=== PATIENT | female | born 1940 | race Caucasian/White ===

== ENCOUNTER 2020-09-24 15:21 | Inpatient (IN) ==
[2020-09-24] MEDS ORDERED: Ondansetron 4 MG/2 ML VIAL IVP ONE (17:08)
[2020-09-24 17:50] LABS: Basophils % 0.6 %; Eosinophils # 0.1 K/mcL (0.0-0.6); Hematocrit 38.6 % (35.3-44.9); Hemoglobin 13.1 g/dL (11.5-15.4); Immature Granulocytes % 0.4 % (0-4); Lymphocytes # 0.9 K/mcL (0.6-4.6); Mean Corpuscular HGB Conc 33.9 g/dL (31.6-35.5); Mean Corpuscular Hemoglobin 27.9 pg (28.0-33.3); Mean Corpuscular Volume 82.3 fL (83.0-100.0); Mean Platelet Volume 9.7 fL (9.4-12.4); Monocytes # 0.8 K/mcL (0.0-1.3); Monocytes % 10.7 %; Neutrophils # 5.4 K/mcL (1.6-8.9); Platelet Count 259 K/mcL (140-400); Red Blood Count 4.69 M/mcL (3.82-4.97); Segmented Neutrophils % 74.3 %; White Blood Count 7.2 K/mcL (4.3-11.1)
[2020-09-24 18:07] LABS: Alanine Aminotransferase 17 Units/L (7-52); Albumin 3.8 g/dL (3.5-5.7); Albumin/Globulin Ratio 1.3 (1.1-2.2); Alkaline Phosphatase 76 Units/L (34-104); Aspartate Amino Transferase 21 Units/L (13-39); BUN/Creatinine Ratio 21 (6-26); Bilirubin,Direct 0.1 mg/dL (0.0-0.2); Bilirubin,Indirect 0.4 mg/dL (0.0-1.0); Bilirubin,Total 0.5 mg/dL (0.3-1.0); Blood Urea Nitrogen 14 mg/dL (8-23); Calcium 8.8 mg/dL (8.6-10.3); Carbon Dioxide 31 mEq/L (23-29); Chloride 84 mEq/L (98-107); Glucose 111 mg/dL (70-105); Lipase 82 Units/L (11-82); Osmolality,Calculated 253 (280-300); Potassium 3.4 mEq/L (3.5-5.1); Sodium 121 mEq/L (136-145); Total Protein 6.8 g/dL (6.4-8.9); Troponin I < 0.03 ng/mL (< 0.04); eGFR For African Americans > 60 (> 60); eGFR For Non-African Americans > 60 (> 60)
[2020-09-24] MEDS ORDERED: 0.9 % Sodium Chloride 1,000 ML IVC ONE (18:13)
[2020-09-24] MEDS ORDERED: Ketorolac 15 MG/ML VIAL IVP ONE (18:16)
[2020-09-24 18:39] LABS: Bacteria,Urine Few per hpf (None-Few); Bilirubin,Urine Negative (Negative); Blood,Urine Negative (Negative); Clarity,Urine Clear (Clear); Color,Urine Light-Yellow (Yellow); Glucose,Urine (UA) Normal (Normal); Ketones,Urine Negative (Negative); Leukocyte Esterase,Urine Large (Negative); Mucus,Urine Few per lpf (None-Few); Nitrite,Urine Negative (Negative); Protein,Urine Negative (Neg-Trace); RBC,Urine 0-3 per hpf (0-3); Squamous Epithelial Cell,Urine Few per hpf (None-Few); Urobilinogen,Urine Normal (Normal)
[2020-09-24] MEDS ORDERED: Pantoprazole 40 MG VIAL IVP ONE (19:34)
[2020-09-24] MEDS ORDERED: Ondansetron 4 MG/2 ML VIAL IVP PRN (21:20)
[2020-09-24] MEDS ORDERED: Naloxone 0.4 MG/ML INJ IVP PRN (21:20)
[2020-09-25] MEDS: Albuterol 2.5 MG/3 ML NEBULIZER IH SCH ×7 (00:16→23:36)
[2020-09-25] MEDS: Melatonin 3 MG TABLET PO PRN ×2 (00:19→22:51)
[2020-09-25] MEDS: amLODIPine 5 MG TABLET PO SCH ×3 (00:19→20:21)
[2020-09-25] MEDS: *HR* LORazepam 1 MG TABLET PO SCH ×5 (00:19→22:51)
[2020-09-25] MEDS: atenoloL 50 MG TABLET PO SCH ×3 (00:19→20:21)
[2020-09-25] MEDS: AMILoride/HCTZ 5-50mg 1 EACH TABLET PO SCH ×2 (00:19→09:19)
[2020-09-25] MEDS ORDERED: Acetaminophen 325 MG TABLET PO PRN (01:29)
[2020-09-25 05:17] LABS: Basophils % 0.2 %; Eosinophils # 0.1 K/mcL (0.0-0.6); Eosinophils % 0.7 %; Hematocrit 36.6 % (35.3-44.9); Hemoglobin 12.5 g/dL (11.5-15.4); Immature Granulocytes % 0.3 % (0-4); Lymphocytes % 10.7 %; Mean Corpuscular HGB Conc 34.2 g/dL (31.6-35.5); Mean Corpuscular Hemoglobin 28.2 pg (28.0-33.3); Mean Corpuscular Volume 82.4 fL (83.0-100.0); Mean Platelet Volume 9.8 fL (9.4-12.4); Monocytes # 0.8 K/mcL (0.0-1.3); Monocytes % 8.5 %; Neutrophils # 7.3 K/mcL (1.6-8.9); Platelet Count 223 K/mcL (140-400); Red Blood Count 4.44 M/mcL (3.82-4.97); Red Cell Distribution Width 12.9 % (11.5-14.5); Segmented Neutrophils % 79.6 %; White Blood Count 9.1 K/mcL (4.3-11.1)
[2020-09-25 05:37] LABS: Alanine Aminotransferase 15 Units/L (7-52); Albumin 3.5 g/dL (3.5-5.7); Albumin/Globulin Ratio 1.3 (1.1-2.2); Alkaline Phosphatase 71 Units/L (34-104); Aspartate Amino Transferase 18 Units/L (13-39); BUN/Creatinine Ratio 18 (6-26); Bilirubin,Total 0.4 mg/dL (0.3-1.0); Blood Urea Nitrogen 11 mg/dL (8-23); Calcium 8.7 mg/dL (8.6-10.3); Carbon Dioxide 28 mEq/L (23-29); Chloride 90 mEq/L (98-107); Globulin 2.7 g/dL (2.4-3.5); Glucose 85 mg/dL (70-105); Osmolality,Calculated 259 (280-300); Potassium 3.5 mEq/L (3.5-5.1); Sodium 125 mEq/L (136-145); Total Protein 6.2 g/dL (6.4-8.9); eGFR For African Americans > 60 (> 60); eGFR For Non-African Americans > 60 (> 60)
[2020-09-25] MEDS: *HR* Heparin 5,000 UNIT/ML VIAL SQ SCH ×2 (06:15→18:14)
[2020-09-25] MEDS: Budesonide/Formoterol 160/4.5 1 PUFF INH IH SCH ×2 (07:42→19:38)
[2020-09-25] MEDS: Tiotropium 10 INH DOSE IH SCH (07:45)
[2020-09-25 07:59] LABS: Sodium, Urine 88.8 mEq/L
[2020-09-25] MEDS ORDERED: lisinopriL 5 MG TABLET PO SCH (09:00)
[2020-09-25] MEDS: Aspirin Enteric Coated 81 MG Tablet PO SCH (09:17)
[2020-09-25] MEDS: PARoxetine 20 MG TABLET PO SCH (09:17)
[2020-09-25] MEDS ORDERED: GI Cocktail 40 ML EACH PO ONE (11:29)
[2020-09-25] MEDS: *HR* HYDROcodone/Acet 5/325 mg TABLET PO PRN ×2 (11:54→18:16)
[2020-09-25] MEDS ORDERED: Mirtazapine 15 MG TABLET PO SCH (21:00)
[2020-09-26] MEDS: *HR* HYDROcodone/Acet 5/325 mg TABLET PO PRN ×2 (02:16→10:18)
[2020-09-26 02:43] LABS: Basophils % 0.2 %; Eosinophils # 0.1 K/mcL (0.0-0.6); Eosinophils % 1.3 %; Hematocrit 37.1 % (35.3-44.9); Hemoglobin 12.2 g/dL (11.5-15.4); Immature Granulocytes % 0.3 % (0-4); Lymphocytes # 1.2 K/mcL (0.6-4.6); Lymphocytes % 12.2 %; Mean Corpuscular HGB Conc 32.9 g/dL (31.6-35.5); Mean Corpuscular Hemoglobin 27.7 pg (28.0-33.3); Mean Corpuscular Volume 84.3 fL (83.0-100.0); Mean Platelet Volume 10.1 fL (9.4-12.4); Monocytes # 0.6 K/mcL (0.0-1.3); Monocytes % 6.4 %; Neutrophils # 7.6 K/mcL (1.6-8.9); Platelet Count 257 K/mcL (140-400); Segmented Neutrophils % 79.6 %; White Blood Count 9.5 K/mcL (4.3-11.1)
[2020-09-26 03:01] LABS: Alanine Aminotransferase 15 Units/L (7-52); Albumin 3.8 g/dL (3.5-5.7); Albumin/Globulin Ratio 1.3 (1.1-2.2); Alkaline Phosphatase 82 Units/L (34-104); Aspartate Amino Transferase 20 Units/L (13-39); BUN/Creatinine Ratio 24 (6-26); Bilirubin,Direct 0.1 mg/dL (0.0-0.2); Bilirubin,Indirect 0.3 mg/dL (0.0-1.0); Bilirubin,Total 0.4 mg/dL (0.3-1.0); Blood Urea Nitrogen 16 mg/dL (8-23); Carbon Dioxide 29 mEq/L (23-29); Chloride 86 mEq/L (98-107); Glucose 98 mg/dL (70-105); Magnesium 1.8 mg/dL (1.6-2.6); Osmolality,Calculated 257 (280-300); Sodium 123 mEq/L (136-145); Total Protein 6.8 g/dL (6.4-8.9); eGFR For African Americans > 60 (> 60); eGFR For Non-African Americans > 60 (> 60)
[2020-09-26 03:24] LABS: Hepatitis B Surface Antigen Nonreactive (Nonreactive)
[2020-09-26 03:53] LABS: Hepatitis A Antibody IgM Nonreactive (Nonreactive); Hepatitis C Virus Antibody Nonreactive (Nonreactive)
[2020-09-26] MEDS: Albuterol 2.5 MG/3 ML NEBULIZER IH SCH ×2 (04:02→07:54)
[2020-09-26] MEDS: *HR* Heparin 5,000 UNIT/ML VIAL SQ SCH (06:13)
[2020-09-26 06:58] VITALS: TEMP 97.8; O2SAT 97
[2020-09-26] MEDS: Budesonide/Formoterol 160/4.5 1 PUFF INH IH SCH (07:54)
[2020-09-26] MEDS: Tiotropium 10 INH DOSE IH SCH ×2 (07:58→08:05)
[2020-09-26] MEDS: PARoxetine 20 MG TABLET PO SCH (09:27)
[2020-09-26] MEDS: amLODIPine 5 MG TABLET PO SCH (09:27)
[2020-09-26] MEDS: atenoloL 50 MG TABLET PO SCH (09:28)
[2020-09-26] MEDS: Aspirin Enteric Coated 81 MG Tablet PO SCH (09:28)
[2020-09-26] MEDS: *HR* LORazepam 1 MG TABLET PO SCH (09:29)
[2020-09-26 10:59] VITALS: BP 127/64; PULSE 70
[2020-09-26] MEDS ORDERED: Albuterol 2.5 MG/3 ML NEBULIZER IH SCH (22:00)
[2020-09-28 11:28] LABS: AFP Tumor Marker Non-Pregnant 3 ng/mL (0-9); Cancer Antigen-GI (CA 19-9) 15 U/mL (0-37)
== END 2020-09-26 15:01 | disposition home or self-care (01) | DRG 644 ==
LOC: 3BNU 15:21 → EMEROOARM 15:21 → SUATTDRO 20:42 → 3BNU 21:44
PROVIDERS: ADMIT Family Medicine; ATTEND Pharmacist

== ENCOUNTER 2020-10-19 06:54 | Inpatient (IN) ==
[2020-10-19] MEDS ORDERED: Ipratropium/Albuterol Neb 3 ML IH ONE (07:25)
[2020-10-19] MEDS ORDERED: methylPREDNISolone 125 MG/2 ML VIAL IVP ONE (07:25)
[2020-10-19 07:44] LABS: Basophils % 0.3 %; Eosinophils # 0.2 K/mcL (0.0-0.6); Eosinophils % 1.4 %; Hematocrit 35.9 % (35.3-44.9); Hemoglobin 11.2 g/dL (11.5-15.4); Immature Granulocytes % 0.3 % (0-4); Lymphocytes # 0.7 K/mcL (0.6-4.6); Lymphocytes % 6.1 %; Mean Corpuscular HGB Conc 31.2 g/dL (31.6-35.5); Mean Corpuscular Hemoglobin 28.2 pg (28.0-33.3); Mean Corpuscular Volume 90.4 fL (83.0-100.0); Mean Platelet Volume 10.2 fL (9.4-12.4); Monocytes # 0.5 K/mcL (0.0-1.3); Monocytes % 4.1 %; Neutrophils # 10.6 K/mcL (1.6-8.9); Platelet Count 230 K/mcL (140-400); Red Blood Count 3.97 M/mcL (3.82-4.97); Red Cell Distribution Width 13.8 % (11.5-14.5); Segmented Neutrophils % 87.8 %; White Blood Count 12.1 K/mcL (4.3-11.1)
[2020-10-19 08:06] LABS: BUN/Creatinine Ratio 17 (6-26); Blood Urea Nitrogen 12 mg/dL (8-23); Calcium 9.1 mg/dL (8.6-10.3); Carbon Dioxide 33 mEq/L (23-29); Chloride 98 mEq/L (98-107); Glucose 161 mg/dL (70-105); Osmolality,Calculated 285 (280-300); Potassium 3.7 mEq/L (3.5-5.1); Sodium 136 mEq/L (136-145); eGFR For African Americans > 60 (> 60); eGFR For Non-African Americans > 60 (> 60)
[2020-10-19 08:27] LABS: Troponin I < 0.03 ng/mL (< 0.04)
[2020-10-19] MEDS ORDERED: Furosemide 40 MG/4 ML VIAL IVP ONE (09:55)
[2020-10-19 10:00] LABS: Influenza A PCR Negative (Negative); Influenza B PCR Negative (Negative); Resp. Syncytial Virus PCR Negative (Negative); SARS-CoV-2 by PCR (In House) Negative (Negative)
[2020-10-19] MEDS ORDERED: Bumetanide 1 MG/4 ML VIAL IVP ONE (10:31)
[2020-10-19] MEDS ORDERED: Ondansetron 4 MG/2 ML VIAL IVP PRN (10:32)
[2020-10-19] MEDS ORDERED: Naloxone 0.4 MG/ML INJ IVP PRN (10:32)
[2020-10-19] MEDS ORDERED: Furosemide 20 MG/2 ML VIAL IVP ONE (11:11)
[2020-10-19] MEDS: hydroCHLOROthiazide 25 MG TABLET PO SCH (12:36)
[2020-10-19] MEDS: Ipratropium/Albuterol Neb 3 ML IH SCH ×3 (13:46→20:03)
[2020-10-19] MEDS ORDERED: Bumetanide 1 MG/4 ML VIAL IVP SCH (17:00)
[2020-10-19] MEDS: *HR* LORazepam 0.5 MG TABLET PO SCH (17:37)
[2020-10-19] MEDS: *HR* Heparin 5,000 UNIT/ML VIAL SQ SCH (17:37)
[2020-10-19] MEDS: Budesonide/Formoterol 160/4.5 1 PUFF INH IH SCH (20:03)
[2020-10-19] MEDS: amLODIPine 5 MG TABLET PO SCH (21:19)
[2020-10-19] MEDS: Furosemide 40 MG/4 ML VIAL IVP SCH (21:20)
[2020-10-19] MEDS: Melatonin 3 MG TABLET PO PRN (21:20)
[2020-10-19] MEDS: *HR* LORazepam 1 MG TABLET PO SCH (21:20)
[2020-10-19] MEDS: Mirtazapine 15 MG TABLET PO SCH (21:49)
[2020-10-19] MEDS: Acetaminophen 325 MG TABLET PO PRN (22:42)
[2020-10-20] MEDS: Ipratropium/Albuterol Neb 3 ML IH SCH ×4 (00:45→11:59)
[2020-10-20] MEDS: *HR* Heparin 5,000 UNIT/ML VIAL SQ SCH ×2 (05:31→16:25)
[2020-10-20] MEDS ORDERED: Perflutren Lipid Microsphere 1.3 ML in 0.9 % Sodium Chloride 8.7 ML IVP PRN (07:48)
[2020-10-20] MEDS: Budesonide/Formoterol 160/4.5 1 PUFF INH IH SCH ×2 (07:53→22:38)
[2020-10-20 08:21] LABS: Basophils % 0.1 %; Hematocrit 36.8 % (35.3-44.9); Hemoglobin 11.7 g/dL (11.5-15.4); Immature Granulocytes % 0.7 % (0-4); Lymphocytes # 0.8 K/mcL (0.6-4.6); Lymphocytes % 7.8 %; Mean Corpuscular HGB Conc 31.8 g/dL (31.6-35.5); Mean Corpuscular Hemoglobin 27.9 pg (28.0-33.3); Mean Corpuscular Volume 87.6 fL (83.0-100.0); Mean Platelet Volume 10.4 fL (9.4-12.4); Monocytes # 0.5 K/mcL (0.0-1.3); Monocytes % 5.5 %; Neutrophils # 8.4 K/mcL (1.6-8.9); Platelet Count 241 K/mcL (140-400); Red Cell Distribution Width 13.7 % (11.5-14.5); Segmented Neutrophils % 85.9 %; White Blood Count 9.7 K/mcL (4.3-11.1)
[2020-10-20] MEDS ORDERED: atenoloL 50 MG TABLET PO SCH (09:00)
[2020-10-20] MEDS: Furosemide 40 MG/4 ML VIAL IVP SCH ×2 (10:18→21:53)
[2020-10-20] MEDS: hydroCHLOROthiazide 25 MG TABLET PO SCH (10:19)
[2020-10-20] MEDS: Aspirin Enteric Coated 81 MG Tablet PO SCH (10:19)
[2020-10-20] MEDS: predniSONE 20 MG TABLET PO SCH (10:19)
[2020-10-20] MEDS: amLODIPine 5 MG TABLET PO SCH ×2 (10:19→21:53)
[2020-10-20] MEDS: *HR* LORazepam 0.5 MG TABLET PO SCH ×2 (10:20→16:25)
[2020-10-20 11:16] LABS: BUN/Creatinine Ratio 22 (6-26); Blood Urea Nitrogen 17 mg/dL (8-23); Calcium 8.9 mg/dL (8.6-10.3); Carbon Dioxide 35 mEq/L (23-29); Chloride 94 mEq/L (98-107); Glucose 136 mg/dL (70-105); Magnesium 1.7 mg/dL (1.6-2.6); Osmolality,Calculated 292 (280-300); Phosphorous 4.3 mg/dL (2.7-4.5); Potassium 3.2 mEq/L (3.5-5.1); Sodium 139 mEq/L (136-145); eGFR For African Americans > 60 (> 60); eGFR For Non-African Americans > 60 (> 60)
[2020-10-20] MEDS: Levalbuterol Neb 1.25 MG/3 ML IH SCH ×2 (16:41→22:38)
[2020-10-20] MEDS: *HR* LORazepam 1 MG TABLET PO SCH (21:53)
[2020-10-20] MEDS: Mirtazapine 15 MG TABLET PO SCH (21:54)
[2020-10-20] MEDS: Acetaminophen 325 MG TABLET PO PRN (22:06)
[2020-10-20] MEDS: Melatonin 3 MG TABLET PO PRN (22:06)
[2020-10-21] MEDS: Levalbuterol Neb 1.25 MG/3 ML IH SCH ×4 (03:42→22:47)
[2020-10-21] MEDS: *HR* Heparin 5,000 UNIT/ML VIAL SQ SCH ×2 (05:20→17:46)
[2020-10-21] MEDS: predniSONE 20 MG TABLET PO SCH (09:42)
[2020-10-21] MEDS: hydroCHLOROthiazide 25 MG TABLET PO SCH (09:42)
[2020-10-21] MEDS: Aspirin Enteric Coated 81 MG Tablet PO SCH (09:42)
[2020-10-21] MEDS: atenoloL 50 MG TABLET PO SCH (09:43)
[2020-10-21] MEDS: *HR* LORazepam 0.5 MG TABLET PO SCH ×2 (09:43→17:46)
[2020-10-21] MEDS: Furosemide 40 MG/4 ML VIAL IVP SCH ×2 (09:43→21:21)
[2020-10-21] MEDS: Budesonide/Formoterol 160/4.5 1 PUFF INH IH SCH ×2 (10:17→22:47)
[2020-10-21 14:35] LABS: BUN/Creatinine Ratio 24 (6-26); Blood Urea Nitrogen 24 mg/dL (8-23); Calcium 9.7 mg/dL (8.6-10.3); Carbon Dioxide 34 mEq/L (23-29); Chloride 87 mEq/L (98-107); Glucose 102 mg/dL (70-105); Osmolality,Calculated 288 (280-300); Potassium 2.8 mEq/L (3.5-5.1); Sodium 137 mEq/L (136-145); eGFR For African Americans > 60 (> 60); eGFR For Non-African Americans 54 (> 60)
[2020-10-21 14:42] LABS: Chol/HDL Ratio 3.2 (0-4.9)
[2020-10-21] MEDS: Psyllium 1 PACKET POWD.PACK PO SCH (17:43)
[2020-10-21] MEDS: carvediloL 6.25 MG TABLET PO SCH (17:44)
[2020-10-21] MEDS: Mirtazapine 15 MG TABLET PO SCH (20:01)
[2020-10-21] MEDS: Acetaminophen 325 MG TABLET PO PRN (21:21)
[2020-10-21] MEDS: *HR* LORazepam 1 MG TABLET PO SCH (21:21)
[2020-10-21] MEDS: Melatonin 3 MG TABLET PO PRN (21:21)
[2020-10-22 01:13] LABS: BUN/Creatinine Ratio 35 (6-26); Blood Urea Nitrogen 35 mg/dL (8-23); Carbon Dioxide 38 mEq/L (23-29); Chloride 89 mEq/L (98-107); Glucose 134 mg/dL (70-105); Magnesium 1.6 mg/dL (1.6-2.6); Osmolality,Calculated 296 (280-300); Potassium 2.8 mEq/L (3.5-5.1); Sodium 138 mEq/L (136-145); eGFR For African Americans > 60 (> 60); eGFR For Non-African Americans 53 (> 60)
[2020-10-22] MEDS: atenoloL 50 MG TABLET PO SCH (03:30)
[2020-10-22] MEDS: Levalbuterol Neb 1.25 MG/3 ML IH SCH ×4 (04:14→21:39)
[2020-10-22] MEDS: *HR* Heparin 5,000 UNIT/ML VIAL SQ SCH ×2 (05:23→16:57)
[2020-10-22] MEDS: carvediloL 6.25 MG TABLET PO SCH ×2 (08:37→15:54)
[2020-10-22] MEDS: Aspirin Enteric Coated 81 MG Tablet PO SCH (08:39)
[2020-10-22] MEDS: predniSONE 20 MG TABLET PO SCH (08:39)
[2020-10-22] MEDS: *HR* LORazepam 0.5 MG TABLET PO SCH ×2 (08:39→15:53)
[2020-10-22] MEDS: Psyllium 1 PACKET POWD.PACK PO SCH (08:41)
[2020-10-22] MEDS: Furosemide 40 MG/4 ML VIAL IVP SCH ×2 (08:52→20:19)
[2020-10-22] MEDS: Budesonide/Formoterol 160/4.5 1 PUFF INH IH SCH ×2 (11:25→21:38)
[2020-10-22] MEDS: amLODIPine 5 MG TABLET PO SCH (16:57)
[2020-10-22] MEDS: *HR* LORazepam 1 MG TABLET PO SCH (20:19)
[2020-10-22] MEDS: Melatonin 3 MG TABLET PO PRN (20:20)
[2020-10-22] MEDS: Acetaminophen 325 MG TABLET PO PRN (20:20)
[2020-10-22] MEDS: Mirtazapine 15 MG TABLET PO SCH (20:22)
[2020-10-23 01:42] LABS: BUN/Creatinine Ratio 35 (6-26); Blood Urea Nitrogen 29 mg/dL (8-23); Calcium 8.9 mg/dL (8.6-10.3); Carbon Dioxide 41 mEq/L (23-29); Chloride 89 mEq/L (98-107); Glucose 137 mg/dL (70-105); Osmolality,Calculated 292 (280-300); Potassium 2.9 mEq/L (3.5-5.1); Sodium 137 mEq/L (136-145); eGFR For African Americans > 60 (> 60); eGFR For Non-African Americans > 60 (> 60)
[2020-10-23] MEDS: Levalbuterol Neb 1.25 MG/3 ML IH SCH ×4 (04:03→21:41)
[2020-10-23] MEDS: *HR* Heparin 5,000 UNIT/ML VIAL SQ SCH ×2 (05:45→16:55)
[2020-10-23] MEDS: Furosemide 40 MG/4 ML VIAL IVP SCH ×2 (09:42→20:39)
[2020-10-23] MEDS: *HR* LORazepam 0.5 MG TABLET PO SCH ×2 (09:42→16:56)
[2020-10-23] MEDS: Aspirin Enteric Coated 81 MG Tablet PO SCH (09:42)
[2020-10-23] MEDS: amLODIPine 5 MG TABLET PO SCH ×2 (09:42→09:51)
[2020-10-23] MEDS: carvediloL 6.25 MG TABLET PO SCH (09:42)
[2020-10-23] MEDS: Psyllium 1 PACKET POWD.PACK PO SCH (09:43)
[2020-10-23] MEDS: Budesonide/Formoterol 160/4.5 1 PUFF INH IH SCH ×2 (10:25→21:41)
[2020-10-23] MEDS ORDERED: carvediloL 6.25 MG TABLET PO ONE (11:28)
[2020-10-23] MEDS ORDERED: Isovue-370 500 ML BOTTLE IVP ONE (12:44)
[2020-10-23 14:14] LABS: Basophils % 0.2 %; Eosinophils # 0.1 K/mcL (0.0-0.6); Eosinophils % 0.5 %; Hematocrit 40.6 % (35.3-44.9); Hemoglobin 12.7 g/dL (11.5-15.4); Immature Granulocytes % 0.5 % (0-4); Lymphocytes # 1.5 K/mcL (0.6-4.6); Lymphocytes % 14.7 %; Mean Corpuscular HGB Conc 31.3 g/dL (31.6-35.5); Mean Corpuscular Hemoglobin 27.9 pg (28.0-33.3); Mean Corpuscular Volume 89.2 fL (83.0-100.0); Mean Platelet Volume 10.7 fL (9.4-12.4); Monocytes # 0.9 K/mcL (0.0-1.3); Monocytes % 8.9 %; Neutrophils # 7.5 K/mcL (1.6-8.9); Platelet Count 274 K/mcL (140-400); Red Blood Count 4.55 M/mcL (3.82-4.97); Red Cell Distribution Width 13.8 % (11.5-14.5); Segmented Neutrophils % 75.2 %; White Blood Count 9.9 K/mcL (4.3-11.1)
[2020-10-23] MEDS: carvediloL 25 MG TABLET PO SCH (16:57)
[2020-10-23] MEDS: Mirtazapine 15 MG TABLET PO SCH (20:39)
[2020-10-23] MEDS: Melatonin 3 MG TABLET PO PRN (20:42)
[2020-10-23] MEDS: *HR* LORazepam 1 MG TABLET PO SCH (21:59)
[2020-10-24 01:55] LABS: BUN/Creatinine Ratio 31 (6-26); Blood Urea Nitrogen 33 mg/dL (8-23); Calcium 8.5 mg/dL (8.6-10.3); Carbon Dioxide 36 mEq/L (23-29); Chloride 92 mEq/L (98-107); Glucose 119 mg/dL (70-105); Osmolality,Calculated 288 (280-300); Potassium 3.2 mEq/L (3.5-5.1); Sodium 135 mEq/L (136-145); eGFR For African Americans > 60 (> 60); eGFR For Non-African Americans 50 (> 60)
[2020-10-24 03:10] VITALS: TEMP 97.8
[2020-10-24] MEDS: Levalbuterol Neb 1.25 MG/3 ML IH SCH ×2 (03:57→10:02)
[2020-10-24] MEDS: *HR* Heparin 5,000 UNIT/ML VIAL SQ SCH (06:59)
[2020-10-24 07:12] VITALS: BP 111/67; PULSE 98; O2SAT 94
[2020-10-24] MEDS: Budesonide/Formoterol 160/4.5 1 PUFF INH IH SCH (10:02)
[2020-10-24] MEDS: *HR* LORazepam 0.5 MG TABLET PO SCH (10:08)
[2020-10-24] MEDS: carvediloL 25 MG TABLET PO SCH (10:08)
[2020-10-24] MEDS: Aspirin Enteric Coated 81 MG Tablet PO SCH (10:08)
[2020-10-24] MEDS: Psyllium 1 PACKET POWD.PACK PO SCH (10:08)
[2020-10-24] MEDS: Furosemide 40 MG/4 ML VIAL IVP SCH (10:08)
== END 2020-10-24 11:00 | disposition home or self-care (01) | DRG 291 ==
LOC: EMEROOARM 06:54 → 3BNU 06:54 → SUATTDRO 12:49 → 3BNU 14:30
PROVIDERS: ADMIT Student in an Organized Health Care Education/Training Program; ATTEND Registered Nurse

== ENCOUNTER 2020-11-27 06:01 | Inpatient (IN) ==
[2020-11-27] MEDS ORDERED: Morphine Sulfate 2 MG/ML SYRINGE IVP STA (06:07)
[2020-11-27] MEDS ORDERED: Ondansetron 4 MG/2 ML VIAL IVP ONE (06:09)
[2020-11-27 06:46] LABS: Basophils % 0.2 %; Eosinophils # 0.1 K/mcL (0.0-0.6); Eosinophils % 0.5 %; Hematocrit 40.6 % (35.3-44.9); Hemoglobin 12.6 g/dL (11.5-15.4); Immature Granulocytes % 0.5 % (0-4); Mean Corpuscular Hemoglobin 27.6 pg (28.0-33.3); Mean Corpuscular Volume 88.8 fL (83.0-100.0); Mean Platelet Volume 11.4 fL (9.4-12.4); Monocytes # 0.9 K/mcL (0.0-1.3); Monocytes % 5.2 %; Neutrophils # 14.8 K/mcL (1.6-8.9); Platelet Count 287 K/mcL (140-400); Red Blood Count 4.57 M/mcL (3.82-4.97); Red Cell Distribution Width 13.8 % (11.5-14.5); Segmented Neutrophils % 87.6 %; White Blood Count 16.9 K/mcL (4.3-11.1)
[2020-11-27 09:32] LABS: Amorphous Sediment,Urine Few per hpf (None-Few); Bacteria,Urine Few per hpf (None-Few); Bilirubin,Urine Negative (Negative); Blood,Urine Negative (Negative); Clarity,Urine Turbid (Clear); Color,Urine Light-Yellow (Yellow); Glucose,Urine (UA) Normal (Normal); Ketones,Urine Negative (Negative); Leukocyte Esterase,Urine Large (Negative); Mucus,Urine Few per lpf (None-Few); Nitrite,Urine Negative (Negative); Protein,Urine Trace mg/dL (Neg-Trace); Renal Epithelial Cells,Urine Few per hpf (None-Few); Specific Gravity,Urine 1.014 (1.010-1.025); Transitional Epi Cells,Urine Few per hpf (None-Few); Urobilinogen,Urine Normal (Normal); WBC,Urine 30-50 per hpf (0-3)
[2020-11-27 09:48] LABS: Alanine Aminotransferase 28 Units/L (7-52); Albumin 3.8 g/dL (3.5-5.7); Albumin/Globulin Ratio 1.5 (1.1-2.2); Alkaline Phosphatase 100 Units/L (34-104); Aspartate Amino Transferase 47 Units/L (13-39); BUN/Creatinine Ratio 15 (6-26); Bilirubin,Direct 0.2 mg/dL (0.0-0.2); Bilirubin,Indirect 0.3 mg/dL (0.0-1.0); Bilirubin,Total 0.5 mg/dL (0.3-1.0); Blood Urea Nitrogen 15 mg/dL (8-23); Calcium 9.7 mg/dL (8.6-10.3); Carbon Dioxide 32 mEq/L (23-29); Chloride 100 mEq/L (98-107); Globulin 2.6 g/dL (2.4-3.5); Glucose 127 mg/dL (70-105); Lipase 33 Units/L (11-82); Osmolality,Calculated 288 (280-300); Sodium 138 mEq/L (136-145); Total Protein 6.4 g/dL (6.4-8.9); eGFR For African Americans > 60 (> 60); eGFR For Non-African Americans 55 (> 60)
[2020-11-27 11:05] LABS: INR 1.1; Prothrombin Time 12.6 Seconds (9.4-12.1)
[2020-11-27 11:07] LABS: Activated Partial Thrombo Time 32.7 Seconds (26.0-36.0)
[2020-11-27] MEDS ORDERED: Morphine Sulfate 2 MG/ML SYRINGE IVP ONE (12:27)
[2020-11-27] MEDS ORDERED: SODIUM CHLORIDE 0.9% IVPB STA (12:42)
[2020-11-27] MEDS ORDERED: GENTAMICIN IVPB STA (12:42)
[2020-11-27] MEDS ORDERED: Gentamicin 400 MG in 0.9 % Sodium Chloride 100 ML IVPB ONE (12:51)
[2020-11-27] MEDS: Ertapenem 1,000 MG in 0.9 % Sodium Chloride Mini Bag 100 ML IVPB SCH (13:20)
[2020-11-27] MEDS ORDERED: Ondansetron 4 MG/2 ML VIAL IVP PRN (13:22)
[2020-11-27] MEDS ORDERED: Naloxone 0.4 MG/ML INJ IVP PRN (13:22)
[2020-11-27] MEDS: Morphine Sulfate 2 MG/ML SYRINGE IVP PRN ×2 (16:56→23:08)
[2020-11-27] MEDS: Vancomycin 1,250 MG/262.5 ML IV.SOLN IVPB SCH (16:56)
[2020-11-27] MEDS: carvediloL 25 MG TABLET PO SCH (17:13)
[2020-11-27] MEDS: Ipratropium/Albuterol Neb 3 ML IH SCH (23:21)
[2020-11-27] MEDS: Budesonide/Formoterol 160/4.5 1 PUFF INH IH SCH (23:22)
[2020-11-28 04:35] LABS: Basophils % 0.2 %; Eosinophils # 0.1 K/mcL (0.0-0.6); Eosinophils % 0.6 %; Hematocrit 32.6 % (35.3-44.9); Immature Granulocytes % 0.3 % (0-4); Lymphocytes # 1.2 K/mcL (0.6-4.6); Lymphocytes % 11.4 %; Mean Corpuscular HGB Conc 31.6 g/dL (31.6-35.5); Mean Corpuscular Hemoglobin 28.9 pg (28.0-33.3); Mean Corpuscular Volume 91.3 fL (83.0-100.0); Monocytes % 9.6 %; Neutrophils # 8.3 K/mcL (1.6-8.9); Platelet Count 208 K/mcL (140-400); Red Blood Count 3.57 M/mcL (3.82-4.97); Red Cell Distribution Width 13.6 % (11.5-14.5); Segmented Neutrophils % 77.9 %; White Blood Count 10.7 K/mcL (4.3-11.1)
[2020-11-28 04:37] LABS: Hemoglobin 10.3 g/dL (11.5-15.4)
[2020-11-28 04:54] LABS: Calcium 9.4 mg/dL (8.6-10.3); Potassium 4.3 mEq/L (3.5-5.1)
[2020-11-28] MEDS: Morphine Sulfate 2 MG/ML SYRINGE IVP PRN ×2 (06:27→14:14)
[2020-11-28] MEDS ORDERED: DilTIAZem CD (24hr) 120 MG CAP.ER.24H PO SCH (09:00)
[2020-11-28] MEDS ORDERED: Furosemide 20 MG TABLET PO SCH (09:00)
[2020-11-28] MEDS ORDERED: carvediloL 25 MG TABLET PO SCH (09:01)
[2020-11-28] MEDS: *HR* LORazepam 1 MG TABLET PO PRN ×2 (10:37→23:26)
[2020-11-28] MEDS: carvediloL 6.25 MG TABLET PO SCH ×2 (10:37→18:07)
[2020-11-28] MEDS: DilTIAZem CD (24hr) 120 MG CAP.ER.24H PO SCH (10:37)
[2020-11-28] MEDS: Ertapenem 1,000 MG in 0.9 % Sodium Chloride Mini Bag 100 ML IVPB SCH (10:38)
[2020-11-28] MEDS: 0.9 % Sodium Chloride 1,000 ML IVC SCH (10:38)
[2020-11-28] MEDS: Ipratropium/Albuterol Neb 3 ML IH SCH ×2 (11:19→22:36)
[2020-11-28] MEDS: Budesonide/Formoterol 160/4.5 1 PUFF INH IH SCH ×2 (11:19→22:34)
[2020-11-28] MEDS: Vancomycin 1,250 MG/262.5 ML IV.SOLN IVPB SCH (18:06)
[2020-11-28] MEDS: *HR* OxyCODONE/APAP 5/325 TABLET PO PRN ×2 (18:11→23:26)
[2020-11-28] MEDS: polyethylene glycoL 3350 17 GM POWD.PACK PO PRN (23:26)
[2020-11-29] MEDS: 0.9 % Sodium Chloride 1,000 ML IVC SCH ×2 (06:30→12:01)
[2020-11-29] MEDS: carvediloL 25 MG TABLET PO SCH (07:19)
[2020-11-29] MEDS: Ipratropium/Albuterol Neb 3 ML IH SCH ×2 (07:41→21:32)
[2020-11-29] MEDS: Budesonide/Formoterol 160/4.5 1 PUFF INH IH SCH ×2 (07:54→21:33)
[2020-11-29] MEDS ORDERED: Ringers Solution, Lactated 1,000 ML IVC SCH (08:00)
[2020-11-29] MEDS: Ertapenem 1,000 MG in 0.9 % Sodium Chloride Mini Bag 100 ML IVPB SCH (08:21)
[2020-11-29] MEDS: carvediloL 6.25 MG TABLET PO SCH ×2 (08:22→16:47)
[2020-11-29] MEDS: *HR* OxyCODONE/APAP 5/325 TABLET PO PRN ×3 (08:22→20:58)
[2020-11-29] MEDS: DilTIAZem CD (24hr) 120 MG CAP.ER.24H PO SCH (08:23)
[2020-11-29] MEDS: *HR* LORazepam 1 MG TABLET PO PRN (12:31)
[2020-11-29 12:42] LABS: Basophils # 0.1 K/mcL (0.0-0.2); Basophils % 0.4 %; Eosinophils # 0.1 K/mcL (0.0-0.6); Eosinophils % 0.5 %; Hemoglobin 9.8 g/dL (11.5-15.4); Immature Granulocytes % 0.3 % (0-4); Lymphocytes % 7.7 %; Mean Corpuscular HGB Conc 30.6 g/dL (31.6-35.5); Mean Corpuscular Hemoglobin 27.8 pg (28.0-33.3); Mean Corpuscular Volume 90.9 fL (83.0-100.0); Mean Platelet Volume 11.4 fL (9.4-12.4); Monocytes # 1.1 K/mcL (0.0-1.3); Monocytes % 9.1 %; Neutrophils # 10.2 K/mcL (1.6-8.9); Platelet Count 227 K/mcL (140-400); Red Blood Count 3.52 M/mcL (3.82-4.97); Red Cell Distribution Width 13.9 % (11.5-14.5); White Blood Count 12.4 K/mcL (4.3-11.1)
[2020-11-29 13:27] LABS: Magnesium 1.9 mg/dL (1.6-2.6); Phosphorous 3.9 mg/dL (2.7-4.5); Potassium 4.4 mEq/L (3.5-5.1)
[2020-11-29] MEDS: *HR* LORazepam 1 MG TABLET PO SCH ×3 (16:45→22:36)
[2020-11-29] MEDS ORDERED: carvediloL 25 MG TABLET PO SCH (17:00)
[2020-11-29] MEDS: Lactobacillus 1 EACH CAP.SPRINK PO SCH (20:58)
[2020-11-29] MEDS: polyethylene glycoL 3350 17 GM POWD.PACK PO PRN (21:02)
[2020-11-30] MEDS: *HR* OxyCODONE/APAP 5/325 TABLET PO PRN ×4 (05:57→21:34)
[2020-11-30 06:36] LABS: Basophils % 0.4 %; Eosinophils # 0.1 K/mcL (0.0-0.6); Eosinophils % 1.3 %; Hemoglobin 9.7 g/dL (11.5-15.4); Immature Granulocytes % 0.4 % (0-4); Lymphocytes # 1.1 K/mcL (0.6-4.6); Lymphocytes % 11.1 %; Mean Corpuscular HGB Conc 31.3 g/dL (31.6-35.5); Mean Corpuscular Hemoglobin 27.9 pg (28.0-33.3); Mean Corpuscular Volume 89.1 fL (83.0-100.0); Mean Platelet Volume 11.1 fL (9.4-12.4); Monocytes % 10.3 %; Neutrophils # 7.7 K/mcL (1.6-8.9); Platelet Count 205 K/mcL (140-400); Red Blood Count 3.48 M/mcL (3.82-4.97); Red Cell Distribution Width 13.7 % (11.5-14.5); Segmented Neutrophils % 76.5 %; White Blood Count 10.1 K/mcL (4.3-11.1)
[2020-11-30 07:03] LABS: BUN/Creatinine Ratio 17 (6-26); Blood Urea Nitrogen 17 mg/dL (8-23); Carbon Dioxide 28 mEq/L (23-29); Chloride 99 mEq/L (98-107); Glucose 103 mg/dL (70-105); Osmolality,Calculated 278 (280-300); Potassium 4.6 mEq/L (3.5-5.1); Sodium 133 mEq/L (136-145); eGFR For African Americans > 60 (> 60); eGFR For Non-African Americans 52 (> 60)
[2020-11-30 07:05] LABS: Magnesium 1.9 mg/dL (1.6-2.6); Phosphorous 3.6 mg/dL (2.7-4.5)
[2020-11-30 07:11] LABS: Folate 7.5 ng/mL (3.0-16.0)
[2020-11-30] MEDS: Lactobacillus 1 EACH CAP.SPRINK PO SCH ×2 (08:54→21:34)
[2020-11-30] MEDS: DilTIAZem CD (24hr) 120 MG CAP.ER.24H PO SCH (08:54)
[2020-11-30] MEDS: *HR* LORazepam 1 MG TABLET PO SCH ×3 (08:54→21:33)
[2020-11-30] MEDS: levoFLOXacin 750 MG TABLET PO SCH (08:54)
[2020-11-30] MEDS: carvediloL 6.25 MG TABLET PO SCH ×2 (08:54→16:33)
[2020-11-30] MEDS: Ipratropium/Albuterol Neb 3 ML IH SCH ×2 (09:34→21:19)
[2020-11-30] MEDS: Budesonide/Formoterol 160/4.5 1 PUFF INH IH SCH ×2 (09:34→21:19)
[2020-11-30] MEDS ORDERED: Isovue-370 500 ML BOTTLE IVP ONE (11:46)
[2020-11-30] MEDS: Sennosides/Docusate Sodium TABLET PO SCH ×2 (11:58→21:33)
[2020-11-30] MEDS ORDERED: Ringers Solution, Lactated 1,000 ML IVC SCH (12:00)
[2020-12-01] MEDS: *HR* OxyCODONE/APAP 5/325 TABLET PO PRN (05:57)
[2020-12-01 07:43] VITALS: BP 126/73; PULSE 81; TEMP 98
[2020-12-01] MEDS: Ipratropium/Albuterol Neb 3 ML IH SCH (07:48)
[2020-12-01] MEDS: Budesonide/Formoterol 160/4.5 1 PUFF INH IH SCH (07:49)
[2020-12-01 07:51] VITALS: O2SAT 96
[2020-12-01 08:00] LABS: Basophils % 0.4 %; Eosinophils # 0.1 K/mcL (0.0-0.6); Eosinophils % 1.5 %; Hematocrit 30.7 % (35.3-44.9); Hemoglobin 9.4 g/dL (11.5-15.4); Immature Granulocytes % 0.3 % (0-4); Lymphocytes # 0.9 K/mcL (0.6-4.6); Lymphocytes % 10.2 %; Mean Corpuscular HGB Conc 30.6 g/dL (31.6-35.5); Mean Corpuscular Hemoglobin 27.9 pg (28.0-33.3); Mean Corpuscular Volume 91.1 fL (83.0-100.0); Mean Platelet Volume 11.4 fL (9.4-12.4); Monocytes # 0.9 K/mcL (0.0-1.3); Monocytes % 10.3 %; Neutrophils # 6.9 K/mcL (1.6-8.9); Platelet Count 214 K/mcL (140-400); Red Blood Count 3.37 M/mcL (3.82-4.97); Red Cell Distribution Width 13.7 % (11.5-14.5); Segmented Neutrophils % 77.3 %
[2020-12-01 08:26] LABS: Phosphorous 3.6 mg/dL (2.7-4.5)
[2020-12-01 08:27] LABS: BUN/Creatinine Ratio 16 (6-26); Blood Urea Nitrogen 15 mg/dL (8-23); Calcium 9.3 mg/dL (8.6-10.3); Carbon Dioxide 30 mEq/L (23-29); Chloride 98 mEq/L (98-107); Glucose 111 mg/dL (70-105); Osmolality,Calculated 276 (280-300); Potassium 4.7 mEq/L (3.5-5.1); Sodium 132 mEq/L (136-145); eGFR For African Americans > 60 (> 60); eGFR For Non-African Americans 56 (> 60)
[2020-12-01] MEDS: DilTIAZem CD (24hr) 120 MG CAP.ER.24H PO SCH (08:31)
[2020-12-01] MEDS: Lactobacillus 1 EACH CAP.SPRINK PO SCH (08:31)
[2020-12-01] MEDS: Sennosides/Docusate Sodium TABLET PO SCH (08:31)
[2020-12-01] MEDS: *HR* LORazepam 1 MG TABLET PO SCH (08:31)
[2020-12-01] MEDS: carvediloL 6.25 MG TABLET PO SCH (08:31)
[2020-12-01] MEDS: levoFLOXacin 750 MG TABLET PO SCH (08:31)
[2020-12-01] MEDS: polyethylene glycoL 3350 17 GM POWD.PACK PO PRN (08:34)
== END 2020-12-01 13:03 | disposition home health service (06) | DRG 872 ==
LOC: EMEROOARM 06:01 → 3BNU 06:01 → SUATTDRO 13:02 → 3BNU 14:29 → SUATTDRO 11-29 15:25
PROVIDERS: ADMIT Family Medicine; ATTEND Internal Medicine

== ENCOUNTER 2020-12-03 11:50 | Inpatient (IN) ==
[2020-12-03 12:42] LABS: Basophils % 0.3 %; Eosinophils # 0.1 K/mcL (0.0-0.6); Eosinophils % 0.7 %; Hematocrit 31.8 % (35.3-44.9); Hemoglobin 10.1 g/dL (11.5-15.4); Immature Granulocytes % 0.5 % (0-4); Lymphocytes # 0.7 K/mcL (0.6-4.6); Lymphocytes % 6.4 %; Mean Corpuscular HGB Conc 31.8 g/dL (31.6-35.5); Mean Corpuscular Hemoglobin 27.9 pg (28.0-33.3); Mean Corpuscular Volume 87.8 fL (83.0-100.0); Mean Platelet Volume 10.9 fL (9.4-12.4); Monocytes # 0.8 K/mcL (0.0-1.3); Monocytes % 6.9 %; Neutrophils # 9.9 K/mcL (1.6-8.9); Platelet Count 276 K/mcL (140-400); Red Blood Count 3.62 M/mcL (3.82-4.97); Red Cell Distribution Width 13.4 % (11.5-14.5); Segmented Neutrophils % 85.2 %; White Blood Count 11.6 K/mcL (4.3-11.1)
[2020-12-03] MEDS ORDERED: Nitroglycerin 0.4 MG TAB.SUBL SL STA (12:53)
[2020-12-03] MEDS ORDERED: Furosemide 40 MG/4 ML VIAL IVP ONE (12:53)
[2020-12-03] MEDS ORDERED: Nitroglycerin 1 INCH/GM PACKET TP ONE (12:54)
[2020-12-03 13:02] LABS: BUN/Creatinine Ratio 13 (6-26); Blood Urea Nitrogen 10 mg/dL (8-23); Calcium 9.2 mg/dL (8.6-10.3); Carbon Dioxide 35 mEq/L (23-29); Chloride 95 mEq/L (98-107); Glucose 137 mg/dL (70-105); Osmolality,Calculated 285 (280-300); Potassium 3.5 mEq/L (3.5-5.1); Sodium 137 mEq/L (136-145); Troponin I < 0.03 ng/mL (< 0.04); eGFR For African Americans > 60 (> 60); eGFR For Non-African Americans > 60 (> 60)
[2020-12-03] MEDS ORDERED: Acetaminophen 325 MG TABLET PO ONE (13:07)
[2020-12-03] MEDS ORDERED: Ondansetron 4 MG/2 ML VIAL IVP PRN (14:36)
[2020-12-03] MEDS ORDERED: Acetaminophen 325 MG TABLET PO PRN (14:36)
[2020-12-03] MEDS ORDERED: Naloxone 0.4 MG/ML INJ IVP PRN (14:36)
[2020-12-03] MEDS ORDERED: Sennosides/Docusate Sodium TABLET PO PRN (14:48)
[2020-12-03] MEDS ORDERED: *HR* LORazepam 1 MG TABLET PO ONE (15:24)
[2020-12-03 15:39] LABS: Basophils % 0.3 %; Eosinophils # 0.1 K/mcL (0.0-0.6); Eosinophils % 0.6 %; Immature Granulocytes % 0.4 % (0-4); Lymphocytes # 0.8 K/mcL (0.6-4.6); Lymphocytes % 7.4 %; Mean Corpuscular HGB Conc 31.3 g/dL (31.6-35.5); Mean Corpuscular Hemoglobin 27.8 pg (28.0-33.3); Mean Corpuscular Volume 88.9 fL (83.0-100.0); Mean Platelet Volume 10.7 fL (9.4-12.4); Monocytes # 0.8 K/mcL (0.0-1.3); Monocytes % 7.6 %; Neutrophils # 8.5 K/mcL (1.6-8.9); Platelet Count 280 K/mcL (140-400); Red Cell Distribution Width 13.4 % (11.5-14.5); Segmented Neutrophils % 83.7 %; White Blood Count 10.1 K/mcL (4.3-11.1)
[2020-12-03] MEDS: *HR* LORazepam 1 MG TABLET PO SCH ×2 (18:08→21:05)
[2020-12-03] MEDS: carvediloL 25 MG TABLET PO SCH (21:05)
[2020-12-03] MEDS: *HR* OxyCODONE/APAP 5/325 TABLET PO PRN (21:06)
[2020-12-03] MEDS: Budesonide/Formoterol 160/4.5 1 PUFF INH IH SCH (21:22)
[2020-12-03] MEDS: Ipratropium/Albuterol Neb 3 ML IH SCH (23:27)
[2020-12-04] MEDS: *HR* OxyCODONE/APAP 5/325 TABLET PO PRN ×3 (03:13→21:30)
[2020-12-04] MEDS: Ipratropium/Albuterol Neb 3 ML IH SCH ×4 (04:14→20:43)
[2020-12-04 07:06] LABS: BUN/Creatinine Ratio 10 (6-26); Blood Urea Nitrogen 10 mg/dL (8-23); Carbon Dioxide 36 mEq/L (23-29); Chloride 94 mEq/L (98-107); Chol/HDL Ratio 3.8 (0-4.9); Cholesterol 135 mg/dL (< 200); Glucose 129 mg/dL (70-105); HDL Cholesterol 36 mg/dL (40-59); LDL Cholesterol,Calculated 84 mg/dL (< 100); Magnesium 1.6 mg/dL (1.6-2.6); Osmolality,Calculated 285 (280-300); Sodium 137 mEq/L (136-145); Triglycerides 76 mg/dL (< 150); Troponin I < 0.03 ng/mL (< 0.04); eGFR For African Americans > 60 (> 60); eGFR For Non-African Americans 56 (> 60)
[2020-12-04 07:17] LABS: Thyroid Stimulating Hormone 7.947 mcIU/mL (0.340-5.600)
[2020-12-04] MEDS: carvediloL 25 MG TABLET PO SCH ×2 (09:29→15:29)
[2020-12-04] MEDS: Aspirin 325 MG TABLET PO SCH (09:29)
[2020-12-04] MEDS: DilTIAZem CD (24hr) 240 MG CAP.ER.24H PO SCH (09:29)
[2020-12-04] MEDS: *HR* LORazepam 1 MG TABLET PO SCH ×3 (09:30→21:30)
[2020-12-04] MEDS: Furosemide 40 MG/4 ML VIAL IVP SCH (09:30)
[2020-12-04] MEDS: levoFLOXacin 750 MG TABLET PO SCH (09:32)
[2020-12-04] MEDS: Budesonide/Formoterol 160/4.5 1 PUFF INH IH SCH ×2 (10:42→20:42)
[2020-12-04] MEDS: Potassium Chloride Elixir 20 MEQ/15 ML UDC PO SCH ×2 (12:56→21:31)
[2020-12-05 01:13] LABS: Basophils % 0.4 %; Eosinophils # 0.3 K/mcL (0.0-0.6); Eosinophils % 2.3 %; Hematocrit 30.4 % (35.3-44.9); Hemoglobin 9.7 g/dL (11.5-15.4); Immature Granulocytes % 0.4 % (0-4); Lymphocytes % 9.1 %; Mean Corpuscular HGB Conc 31.9 g/dL (31.6-35.5); Mean Corpuscular Hemoglobin 28.4 pg (28.0-33.3); Mean Corpuscular Volume 89.1 fL (83.0-100.0); Mean Platelet Volume 10.3 fL (9.4-12.4); Monocytes # 1.1 K/mcL (0.0-1.3); Monocytes % 10.1 %; Neutrophils # 8.6 K/mcL (1.6-8.9); Platelet Count 281 K/mcL (140-400); Red Blood Count 3.41 M/mcL (3.82-4.97); Red Cell Distribution Width 13.4 % (11.5-14.5); Segmented Neutrophils % 77.7 %; White Blood Count 11.1 K/mcL (4.3-11.1)
[2020-12-05 01:33] LABS: Calcium 8.7 mg/dL (8.6-10.3); Potassium 3.8 mEq/L (3.5-5.1)
[2020-12-05] MEDS: Ipratropium/Albuterol Neb 3 ML IH SCH ×4 (05:21→20:13)
[2020-12-05] MEDS: carvediloL 25 MG TABLET PO SCH ×2 (08:53→16:36)
[2020-12-05] MEDS: DilTIAZem CD (24hr) 240 MG CAP.ER.24H PO SCH (08:53)
[2020-12-05] MEDS: levoFLOXacin 750 MG TABLET PO SCH (08:53)
[2020-12-05] MEDS: Aspirin 325 MG TABLET PO SCH (08:53)
[2020-12-05] MEDS: *HR* OxyCODONE/APAP 5/325 TABLET PO PRN ×3 (08:53→22:32)
[2020-12-05] MEDS: Furosemide 40 MG/4 ML VIAL IVP SCH (08:54)
[2020-12-05] MEDS: *HR* LORazepam 1 MG TABLET PO SCH ×3 (08:54→22:32)
[2020-12-05] MEDS: Budesonide/Formoterol 160/4.5 1 PUFF INH IH SCH ×2 (10:38→20:13)
[2020-12-06] MEDS: Ipratropium/Albuterol Neb 3 ML IH SCH ×4 (04:23→21:48)
[2020-12-06 05:47] LABS: Basophils % 0.4 %; Eosinophils # 0.3 K/mcL (0.0-0.6); Eosinophils % 2.6 %; Hematocrit 32.2 % (35.3-44.9); Immature Granulocytes % 0.4 % (0-4); Lymphocytes # 1.1 K/mcL (0.6-4.6); Lymphocytes % 11.6 %; Mean Corpuscular HGB Conc 31.1 g/dL (31.6-35.5); Mean Corpuscular Hemoglobin 27.7 pg (28.0-33.3); Mean Corpuscular Volume 89.2 fL (83.0-100.0); Mean Platelet Volume 10.3 fL (9.4-12.4); Monocytes # 0.8 K/mcL (0.0-1.3); Monocytes % 8.7 %; Neutrophils # 7.3 K/mcL (1.6-8.9); Platelet Count 278 K/mcL (140-400); Red Blood Count 3.61 M/mcL (3.82-4.97); Red Cell Distribution Width 13.5 % (11.5-14.5); Segmented Neutrophils % 76.3 %; White Blood Count 9.5 K/mcL (4.3-11.1)
[2020-12-06 06:07] LABS: BUN/Creatinine Ratio 18 (6-26); Blood Urea Nitrogen 19 mg/dL (8-23); Calcium 8.9 mg/dL (8.6-10.3); Carbon Dioxide 36 mEq/L (23-29); Chloride 94 mEq/L (98-107); Glucose 106 mg/dL (70-105); Osmolality,Calculated 285 (280-300); Potassium 3.1 mEq/L (3.5-5.1); Sodium 136 mEq/L (136-145); eGFR For African Americans > 60 (> 60); eGFR For Non-African Americans 50 (> 60)
[2020-12-06] MEDS: Budesonide/Formoterol 160/4.5 1 PUFF INH IH SCH ×2 (07:43→21:48)
[2020-12-06] MEDS: Aspirin 325 MG TABLET PO SCH (08:24)
[2020-12-06] MEDS: *HR* OxyCODONE/APAP 5/325 TABLET PO PRN ×3 (08:24→20:30)
[2020-12-06] MEDS: Furosemide 40 MG/4 ML VIAL IVP SCH (08:24)
[2020-12-06] MEDS: *HR* LORazepam 1 MG TABLET PO SCH ×3 (08:24→20:31)
[2020-12-06] MEDS: levoFLOXacin 750 MG TABLET PO SCH (08:24)
[2020-12-06] MEDS: carvediloL 25 MG TABLET PO SCH ×2 (08:24→17:21)
[2020-12-06] MEDS: DilTIAZem CD (24hr) 240 MG CAP.ER.24H PO SCH (08:24)
[2020-12-07] MEDS: Ipratropium/Albuterol Neb 3 ML IH SCH ×2 (04:21→10:49)
[2020-12-07 05:18] LABS: Basophils % 0.4 %; Eosinophils # 0.3 K/mcL (0.0-0.6); Eosinophils % 2.7 %; Hemoglobin 10.2 g/dL (11.5-15.4); Immature Granulocytes % 0.3 % (0-4); Lymphocytes # 1.1 K/mcL (0.6-4.6); Lymphocytes % 11.9 %; Mean Corpuscular HGB Conc 31.9 g/dL (31.6-35.5); Mean Corpuscular Hemoglobin 28.6 pg (28.0-33.3); Mean Corpuscular Volume 89.6 fL (83.0-100.0); Mean Platelet Volume 10.3 fL (9.4-12.4); Monocytes # 0.8 K/mcL (0.0-1.3); Neutrophils # 6.9 K/mcL (1.6-8.9); Platelet Count 291 K/mcL (140-400); Red Blood Count 3.57 M/mcL (3.82-4.97); Red Cell Distribution Width 13.6 % (11.5-14.5); Segmented Neutrophils % 75.7 %; White Blood Count 9.2 K/mcL (4.3-11.1)
[2020-12-07 05:47] LABS: Calcium 9.3 mg/dL (8.6-10.3); Potassium 3.6 mEq/L (3.5-5.1)
[2020-12-07] MEDS: *HR* OxyCODONE/APAP 5/325 TABLET PO PRN ×2 (05:58→14:43)
[2020-12-07] MEDS: levoFLOXacin 750 MG TABLET PO SCH (08:03)
[2020-12-07] MEDS: DilTIAZem CD (24hr) 240 MG CAP.ER.24H PO SCH (08:03)
[2020-12-07] MEDS: Aspirin 325 MG TABLET PO SCH (08:04)
[2020-12-07] MEDS: carvediloL 25 MG TABLET PO SCH (08:04)
[2020-12-07] MEDS: *HR* LORazepam 1 MG TABLET PO SCH ×2 (08:04→14:43)
[2020-12-07] MEDS ORDERED: Furosemide 40 MG TABLET PO SCH (09:00)
[2020-12-07] MEDS: Budesonide/Formoterol 160/4.5 1 PUFF INH IH SCH (10:49)
[2020-12-07 11:43] VITALS: BP 117/63; PULSE 68; TEMP 97.5; O2SAT 96
[2020-12-07 14:13] LABS: Influenza A PCR Negative (Negative); Influenza B PCR Negative (Negative); Resp. Syncytial Virus PCR Negative (Negative)
[2020-12-07 15:09] LABS: SARS-CoV-2 by PCR (In House) Negative (Negative)
== END 2020-12-07 16:18 | DRG 291 ==
LOC: 3BNU 11:50 → EMEROOARM 11:50 → SUATTDRO 18:37 → 3BNU 20:10
PROVIDERS: ADMIT Family Medicine; ATTEND Internal Medicine